=== PATIENT | female | born 1980 | race Caucasian/White ===

== ENCOUNTER 2019-10-28 06:48 | Emergency (ER) | payer SELFPAY ==
[~2019-10-28] VITALS: Ht 162.6 cm; Wt 61.0 kg
[2019-10-28] MEDS ORDERED: FAMOTIDINE 20 MG/2 ML VIAL IVP ONE (07:15)
[2019-10-28] MEDS ORDERED: IV NORMAL SALINE 1000ML BAG 1,000 ML IV ONE (07:15)
[2019-10-28] MEDS ORDERED: ONDANSETRON PF 4 MG/2 ML VIAL. IVP ONE (07:15)
[2019-10-28 07:18] LABS: BILIRUBIN,URINE NEGATIVE (NEG); CLARITY,URINE CLEAR; COLOR,URINE YELLOW; NITRITE,URINE NEGATIVE (NEG); PH,URINE 5.5 (<5.0-8.0); PROTEIN,URINE NEGATIVE (NEG-TRACE); UROBILINOGEN,URINE 0.2 mg/dL (0.2 mg/dL)
[2019-10-28 07:27] LABS: BASO # 0.1 x10^3/uL (0.0-0.2); BASO % 1 % (0-3); EOS # 0.1 x10^3/uL (0.0-0.7); EOS % 1 % (0-3); HEMATOCRIT 35.7 % (36.0-47.0); HEMOGLOBIN 11.9 g/dL (12.0-15.5); LYMPH # 1.5 x10^3/uL (1.0-4.8); LYMPH % 20 % (24-48); MEAN CORPUSCULAR HEMOGLOBIN 29 pg (25-35); MEAN CORPUSCULAR HGB CONC 33 g/dL (31-37); MEAN CORPUSCULAR VOLUME 86 fL (79-100); MONO # 0.4 x10^3/uL (0.0-1.1); MONO % 6 % (0-9); NEUT # 5.4 x10^3/uL (1.8-7.7); NEUT % 72 % (31-73); PLATELET COUNT 269 x10^3/uL (140-400); RED BLOOD COUNT 4.17 x10^6/uL (3.50-5.40); RED CELL DISTRIBUTION WIDTH 14.1 % (11.5-14.5); WHITE BLOOD COUNT 7.4 x10^3/uL (4.0-11.0)
[2019-10-28] MEDS ORDERED: KETOROLAC 15 MG/ML VIAL. IVP ONE (07:30)
[2019-10-28 07:35] LABS: AMORPHOUS SEDIMENT,UR PRESENT /HPF; BACTERIA,URINE 0 /HPF (0-FEW); RBC,URINE 0 /HPF (0-2); SQUAMOUS EPITHELIAL CELL,UR MOD /LPF
--- NOTE | 2019-10-28 07:46 | PHYS DOC ---
Past Medical History Past Medical History: Anxiety, Seizure Past Surgical History: No Surgical History Smoking Status: Never Smoker Alcohol Use: None General Adult EDM: Chief Complaint: ABDOMINAL PAIN HPI: HPI: Tamara Baker is a 39-year-old white female with a 3-day history of fatigue, headache, nausea and fever and a 1 day history of exceptional acute abdominal pain. Patient reports sleeping excessively over the last 3 days along with intermittent episodes of nausea not provoked by food or associated with anything else. She reports one episode of night sweats. Patient denies any sick contacts. She saw her PCP for headache and was prescribed a medication, but is unsure what this medication is. She describes her headache as 8 out of 10 basilar and throbbing. Approximately 4 PM yesterday she began develop extreme acute abdominal pain, she has had 3 episodes of vomiting since yesterday. Her abdominal pain has no associated alleviating or aggravating factors. She reports diffuse abdominal tenderness. Past medical history: Patient reports being diagnosed with seizure disorder ap proximately 10 years ago, controlled on lamotrigine. Past surgical history: None Social history: Denies alcohol, tobacco, illicit drugs. Meds: Lamotrigine, Adderall, trazodone. Review of Systems: Review of Systems: Constitutional: Reports feverand chills Eyes: Denies redness or eye pain HENT: Denies nasal congestion or sore throat Respiratory: Denies cough or shortness of breath Cardiovascular: Denies chest pain or palpitations GI: Reports nausea vomiting acute abdominal pain. Denies diarrhea. : Denies dysuria or hematuria Musculoskeletal: Denies back pain or joint pain Integument: Denies rash or skin lesions Neurologic: Reports headache and neck tenderness. Complete systems were reviewed and found to be within normal limits, except as documented in this note. Heart Score: Risk Factors: Risk Factors: DM, Current or recent (<one month) smoker, HTN, HLP, family history of CAD, obesity. Risk Scores: Score 0 - 3: 2.5% MACE over next 6 weeks - Discharge Home Score 4 - 6: 20.3% MACE over next 6 weeks - Admit for Clinical Observation Score 7 - 10: 72.7% MACE over next 6 weeks - Early Invasive Strategies Current Medications: Current Medications Medications (Trade) Dose Ordered Sig/Tomas Start Time Stop Time Status Last Admin Dose Admin Famotidine (Pepcid Vial) 20 mg 1X ONCE 10/28/19 07:15 10/28/19 07:16 UNV Ketorolac Tromethamine (Toradol 15mg Vial) 15 mg 1X ONCE 10/28/19 07:30 10/28/19 07:31 UNV Ondansetron HCl (Zofran) 4 mg 1X ONCE 10/28/19 07:15 10/28/19 07:16 UNV Sodium Chloride 1,000 ml @ 1,000 mls/hr 1X ONCE 10/28/19 07:15 10/28/19 08:14 UNV Patient reports: Lamotrigine, Adderall, trazodone Physical Exam: PE: Constitutional: 39-year-old white female appears stated age. Patient is in acute distress, seen holding abdomen. Patient refuses to open eyes throughout interview. Headache reported to be increased while sitting patient up. HENT: Normocephalic, atraumatic. Cranial nerve exam limited due to patient p hotophobia. Eyes: PERRL, EOMI, conjunctiva normal, no discharge Neck: Patient unable to flex chin to chest. Rotation of the neck WNL. Patient unable to extend neck. Lungs & Thorax: Bilateral breath sounds clear to auscultation, no wheezing Heart: Regular rate and rhythm no murmurs. Normal S1 and S2. S3 and S4 absent. Abdomen: Diffuse abdominal tenderness in all 4 quadrants. Bowel sounds located all 4 quadrants. Positive heel strike test. Negative rebound tenderness. Skin: Warm, dry, no erythema, no rash Back: No tenderness, no CVA tenderness Extremities: No tenderness, ROM intact, no edema. 2+4 pulses located all 4 extremities. Neurologic: Patient poorly oriented. normal motor function, normal sensory function, no focal deficits noted Psychologic: Affect normal, judgment normal Current Patient Data: Vital Signs: Vital Signs Date Time Temp Pulse Resp B/P (MAP) Pulse Ox O2 Delivery O2 Flow Rate FiO2 10/28/19 06:48 98.6 84 20 113/74 (87) 100 Room Air 98.6 EKG: EKG: RR: 842ms DE: 148ms QRS: 92ms QT: 376ms QTc: 413ms Normal sinus rhythm. Radiology/Procedures: Radiology/Procedures: [] Course & Med Decision Making: Course & Med Decision Making Pertinent Labs and Imaging studies reviewed. (See chart for details) 39-year-old white female presenting with acute abdominal pain and headache. DD: Meningitis, pancreatitis, SBO, perforated bowel. -CBC, Chem-12 -UA -CT head noncontrast. -CT abdomen, and pelvis with contrast Dragon Disclaimer: Dragon Disclaimer: This electronic medical record was generated, in whole or in part, using a voice recognition dictation system. Departure Departure Impression: Primary Impression: Abdominal pain Qualified Codes: R10.84 - Generalized abdominal pain Additional Impressions: Headache Qualified Codes: R51 - Headache Suspected 2019 novel coronavirus infection Disposition: HOME, SELF-CARE Condition: STABLE Referrals: NO PCP (PCP) VAISHALI KEBEDE MD, SCOTT S MD Patient Instructions: Abdominal Pain (Nonspecific), Headache, FAQs, Viral Syndrome Additional Instructions: You have been tested for or diagnosed with COVID-19. It is an infection caused by a new type of coronavirus. COVID-19 will cause cold-like or mild flu symptoms in most. It can cause more severe symptoms like problems breathing in some. There is no treatment for COVID-19. The body will clear the infection over time. Self-care will help to ease discomfort. Steps to Take: Self-Care Rest as needed. Healthy habits may help you feel better. Steps include: Choose healthy foods including fruits and vegetables. Drink water throughout the day. Get plenty of sleep each night. If you smoke, try to quit. It may ease breathing. Avoid alcohol. Keep Others Healthy The virus can spread to others. Droplets are released every time you sneeze or cough. The droplets can get into the mouth, nose, or eyes of people near you and lead to infection. To lower the chances of spreading COVID-19 to others: Stay at home until your doctor has said it is safe to leave. If you tested positive this will mean staying isolated until both of the following are true: At least 7 days have passed since the start of illness. You are free of fever for at least 72 hours without the use of medicine. During this time: - Avoid public areas, events, or transportation. Do not return to work or school until your doctor has said it is safe to do so. - Call ahead if you need to go to a medical center. Let them know you may have COVID-19. It will help them guide you where to go. They may also ask you to wear a facemask when you come to the office. - If you call for emergency medical services, let them know you may have COVID- 19. While at home: - Try to avoid close contact with others. Stay about 6 feet away. - If possible, spend most of your time in a separate room from others. - Use a face mask if you will be in close contact with others such as sharing a room or vehicle. - Have someone wipe down common surfaces in the home. Use household rolfer every day on areas like doorknobs, counters, or sinks. - Cough or sneeze into a tissue. Throw the tissue away right after use. If a tissue is not available, cough or sneeze into your elbow. - Wash your hands often. Wash them after sneezing or coughing. Use soap and water and wash for at least 20 seconds. Alcohol based hand drycleaner can be used if soap and water is not available. - Do not prepare food for others. Avoid sharing personal items like forks, spoons, or toothbrushes. - Avoid close contact with pets while you are sick. There is no evidence of the virus passing to pets. This is a safety step until more is known about this virus. Isolation can be frustrating. Social interaction can help. Keep in touch with friends and family through phone and tech options. You can still interact with others in your home, just keep a safe distance of about 6 feet. Follow-up: Your doctors office will check in with you to see if there are any changes in your health. You may be asked to keep track of symptoms to share with them. They will also let you know when you are clear to be in public again. Problems to Look Out For: Contact your doctor if your recovery is not going as you expect. Get emergency care if you have problems such as: - Trouble breathing - Nonstop chest pain or pressure - Changes in awareness, confusion, or problems waking - Lips or face have bluish color - Worsening of symptoms If you think you have an emergency, call for emergency medical services right away. As taken from [facility] Scripts Famotidine (PEPCID) 20 Mg Tablet 20 MG PO BID, #14 TAB Prov: BIGG FAUST DO 10/28/19 Ondansetron (ONDANSETRON ODT) 4 Mg Tab.rapdis 1 TAB PO PRN Q6-8HRS PRN for NAUSEA, #16 TAB Prov: BIGG FAUST DO 10/28/19 Hyoscyamine Sulfate (LEVSIN-SL) 0.125 Mg Tab.subl 0.125 MG SL Q4-6HRS PRN for PAIN, #14 TAB Prov: BIGG FAUST DO 10/28/19 Lorazepam (ATIVAN) 0.5 Mg Tablet 0.5 MG PO TID PRN for ANXIETY, #6 TAB Prov: BIGG FAUST DO 10/28/19 Justicifation of Admission Dx: Justifications for Admission: Justification of Admission Dx: N/A BIGG FAUST DO Oct 28, 2019 07:46
[2019-10-28 07:56] LABS: CALCIUM 8.4 mg/dL (8.5-10.1); GFR 61.1; POTASSIUM 3.7 mmol/L (3.5-5.1)
[2019-10-28 08:01] LABS: ALBUMIN 3.4 g/dL (3.4-5.0); ALBUMIN/GLOBULIN RATIO 1.1 (1.0-1.7); MAGNESIUM 2.2 mg/dL (1.8-2.4); TOTAL BILIRUBIN 0.1 mg/dL (0.2-1.0); TOTAL PROTEIN 6.5 g/dL (6.4-8.2)
[2019-10-28 08:01] LABS: BARBITURATES NEG (NEG); BENZODIAZEPINES NEG (NEG); CANNABINOIDS NEG (NEG); COCAINE NEG (NEG); METHADONE NEG (NEG); OPIATES NEG (NEG); PHENCYCLIDINE NEG (NEG)
[2019-10-28 08:03] LABS: AMPHETAMINE/METHAMPHETAMINE POS (NEG)
[2019-10-28 08:09] LABS: CREATINE KINASE 63 U/L (26-192)
[2019-10-28] MEDS ORDERED: IOHEXOL 300 MG/ML 100ML VIAL. IV ONE (08:15)
[2019-10-28 08:20] LABS: U PREG PATIENT NEGATIVE (NEG)
[2019-10-28 08:33] LABS: PROTHROMBIN TIME PATIENT 13.1 SEC (11.7-14.0)
--- NOTE | 2019-10-28 09:05 | RAD ---
CT HEAD WO CONTRAST History:Headache Comparison: None. Technique: Noncontrast CT imaging was performed of the head. Exposure: One or more of the following individualized dose reduction techniques were utilized for this examination: 1. Automated exposure control 2. Adjustment of the mA and/or kV according to patient size 3. Use of iterative reconstruction technique. Findings: No convincing acute extra-axial or parenchymal hemorrhage is identified. Some small round foci of hyperdensity of the posterior fossa greater on the right are more likely sequela of early calcification, no mass effect or edema. There is no significant intra-axial mass effect, midline shift, or extra-axial fluid collection. The power-white differentiation of the major vascular territories is preserved. The ventricles, sulci, and cisterns are within normal limits in size and configuration. Mastoid air cells are aerated. Visualized paranasal sinuses are also overall aerated. No acute calvarial abnormality is identified. Impression: 1. No convincing acute intracranial abnormality is identified. Electronically signed by: Kenn Ho MD (10/28/2019 9:02 AM) [id number]
--- NOTE | 2019-10-28 09:12 | RAD ---
CT abdomen and pelvis with contrast History: Diffuse abdominal pain Technique: After the administration of intravenous contrast, CT imaging was performed of the abdomen and pelvis. No oral contrast was given. Multiplanar images are reviewed. Exposure: One or more of the following individualized dose reduction techniques were utilized for this examination: 1. Automated exposure control 2. Adjustment of the mA and/or kV according to patient size 3. Use of iterative reconstruction technique. Comparison: None Findings: There is no significant abnormality of the visualized lung bases. There is no significant abnormality of the liver, spleen, pancreas, adrenal glands. Both kidneys enhance without hydronephrosis. Gallbladder is present without obvious intraluminal abnormality by CT. Accurate evaluation of bowel is limited without oral contrast. There is no significant inflammatory change adjacent to the bowel. There is no evidence of bowel obstruction, free fluid, or free air. Normal caliber appendix is visualized without adjacent inflammatory change, courses posterior to the ascending colon. B difficult to exclude mild wall thickening greater inferiorly of the descending and sigmoid colon although may be due to incomplete distention and peristalsis during exam. There is retained stool greater of the right and transverse colon. There are multiple phleboliths in the pelvis bilaterally. There is tampon present. Impression: 1. There is no CT evidence of acute appendicitis. It would be difficult to exclude mild variable wall thickening of the descending and sigmoid colon as could be seen with mild colitis in the appropriate clinical setting although no adjacent inflammatory change. Electronically signed by: Kenn Ho MD (10/28/2019 9:09 AM) [id number]
[2019-10-28] MEDS ORDERED: ONDA4TAB12 PO (09:38)
[2019-10-28] MEDS ORDERED: HYOS0.1265 SL (09:38)
[2019-10-28] MEDS ORDERED: LORA0.5T96 PO (09:38)
[2019-10-28] MEDS ORDERED: FAMO-63 PO (09:38)
[2019-10-28 11:00] VITALS: BP 119/68
--- NOTE | 2019-10-28 13:28 | EKG ---
[facility] [address] [place] [address] Test Date: 2019-10-28 Test Time: 07:23:06 Pat Name: YOSEF BONILLA Department: Room: Gender: F Bee Robber: : 1980 Requested By: BIGG FAUST Order Number: [id number] Reading MD: Measurements Intervals [place] Rate: 71 P: 56 MS: 148 QRS: 29 QRSD: 92 T: 48 QT: 376 QTc: 413 Interpretive Statements SINUS RHYTHM INCOMPLETE RIGHT BUNDLE BRANCH BLOCK OTHERWISE NORMAL ECG RI6.02 No previous ECG available for comparison
--- NOTE | 2019-10-30 09:46 | NUR ---
IP: Attempted to call COVID results. left voicemail to return my call.
== END 2019-10-28 11:03 | disposition home or self-care (01) ==
LOC: ER 06:48
DX: R10.84 Generalized abdominal pain (principal); Z20.828 Contact with and (suspected) exposure to other viral communicable diseases; R50.9 Fever, unspecified; R51 Headache; R11.0 Nausea; R53.83 Other fatigue; F41.9 Anxiety disorder, unspecified
CPT/HCPCS: 36415; 70450; 74177; 80053; 80307; 81001; 81025; 82553; 83605; 83690; 83735; 84484; 85025; 85610; 85730; 87086; 93005; 96361; 96374; 96375; 99285; J1885; J2060; J2405; J3490; J7030; Q9967; U0003

== ENCOUNTER 2019-10-30 12:35 | Emergency (ER) | payer SELFPAY ==
[~2019-10-30] VITALS: Ht 165.1 cm; Wt 63.6 kg
[~2019-10-30 12:35] MED LIST: FAMO-63 PO; HYOS0.1265 SL; LORA0.5T96 PO; ONDA4TAB12 PO
[2019-10-30 13:24] LABS: BASO # 0.1 x10^3/uL (0.0-0.2); BASO % 1 % (0-3); EOS # 0.1 x10^3/uL (0.0-0.7); EOS % 1 % (0-3); HEMATOCRIT 32.9 % (36.0-47.0); HEMOGLOBIN 10.8 g/dL (12.0-15.5); LYMPH # 1.5 x10^3/uL (1.0-4.8); LYMPH % 21 % (24-48); MEAN CORPUSCULAR HEMOGLOBIN 28 pg (25-35); MEAN CORPUSCULAR HGB CONC 33 g/dL (31-37); MEAN CORPUSCULAR VOLUME 86 fL (79-100); MONO # 0.4 x10^3/uL (0.0-1.1); MONO % 6 % (0-9); NEUT # 5.2 x10^3/uL (1.8-7.7); NEUT % 71 % (31-73); PLATELET COUNT 229 x10^3/uL (140-400); RED BLOOD COUNT 3.83 x10^6/uL (3.50-5.40); RED CELL DISTRIBUTION WIDTH 13.9 % (11.5-14.5); WHITE BLOOD COUNT 7.3 x10^3/uL (4.0-11.0)
[2019-10-30] MEDS ORDERED: ONDANSETRON PF 4 MG/2 ML VIAL. IV ONE (13:30)
[2019-10-30] MEDS ORDERED: IV NORMAL SALINE 1000ML BAG 1,000 ML IV ONE (13:30)
[2019-10-30] MEDS ORDERED: fentaNYL PF VIAL 100 MCG/2 ML VIAL IV ONE (13:30)
[2019-10-30 13:39] LABS: CALCIUM 7.8 mg/dL (8.5-10.1); CREATININE 0.6 mg/dL (0.6-1.0); GFR 110.2; POTASSIUM 3.6 mmol/L (3.5-5.1)
[2019-10-30 13:43] LABS: BILIRUBIN,URINE NEGATIVE (NEG); CLARITY,URINE CLEAR; COLOR,URINE YELLOW; NITRITE,URINE NEGATIVE (NEG); PROTEIN,URINE NEGATIVE (NEG-TRACE); UROBILINOGEN,URINE 0.2 mg/dL (0.2 mg/dL)
[2019-10-30 13:45] LABS: ALBUMIN 2.8 g/dL (3.4-5.0); MAGNESIUM 1.7 mg/dL (1.8-2.4); TOTAL BILIRUBIN 0.2 mg/dL (0.2-1.0); TOTAL PROTEIN 5.7 g/dL (6.4-8.2)
[2019-10-30 13:46] LABS: AMPHETAMINE/METHAMPHETAMINE NEG (NEG); BARBITURATES NEG (NEG); BENZODIAZEPINES NEG (NEG); CANNABINOIDS NEG (NEG); COCAINE NEG (NEG); METHADONE NEG (NEG); OPIATES NEG (NEG); PHENCYCLIDINE NEG (NEG)
[2019-10-30 14:12] LABS: BACTERIA,URINE 0 /HPF (0-FEW); RBC,URINE 0 /HPF (0-2); SQUAMOUS EPITHELIAL CELL,UR OCC /LPF; WBC,URINE 0 /HPF (0-4)
[2019-10-30] MEDS ORDERED: methylPREDNISolone SOD SUCC PF 125 MG/2 ML VIAL. IV ONE (15:30)
[2019-10-30] MEDS ORDERED: diphenhydrAMINE 50 MG/ML VIAL IVP ONE (15:30)
[2019-10-30] MEDS ORDERED: KETOROLAC 15 MG/ML VIAL. IVP ONE (15:30)
[2019-10-30 16:45] VITALS: BP 115/68
[2019-10-30] MEDS ORDERED: LORA0.5T96 PO (16:45)
[2019-10-30] MEDS ORDERED: ONDA-84 PO (16:45)
--- NOTE | 2019-10-30 16:46 | PHYS DOC ---
Past Medical History Past Medical History: Anxiety, Migraines, Seizure Past Surgical History: No Surgical History Smoking Status: Never Smoker Alcohol Use: None General Adult EDM: Chief Complaint: ABDOMINAL PAIN HPI: HPI: Patient is a 39 year old female who presents to the emergency department via EMS with complaints of diffuse abdominal pain, nausea, vomiting, and headache. Patient was seen for the same symptoms on 27 October. Patient states that she has been taking the medications that were prescribed but she is out of the Ativan and Zofran that were prescribed during that visit. She denies any fever, cough, shortness of breath, weakness, dysuria, hematuria, back pain, body aches, numbness, tingling, weakness. She denies any syncope or dizziness. The patient reports that her abdomen and her head pain are a 10 out of 10 on the pain scale, she denies any alleviating or exacerbating factors. Review of Systems: Review of Systems: Constitutional: Denies fever or chills. [] Eyes: Denies change in visual acuity. [] HENT: Denies nasal congestion or sore throat. [] Respiratory: Denies cough or shortness of breath. [] Cardiovascular: Denies chest pain or edema. [] GI: See HPI : Denies dysuria. [] Musculoskeletal: Denies back pain or joint pain. [] Integument: Denies rash. [] Neurologic: Denies focal weakness or sensory changes; see HPI Psychiatric: Denies depression or anxiety. [] Heart Score: Risk Factors: Risk Factors: DM, Current or recent (<one month) smoker, HTN, HLP, family history of CAD, obesity. Risk Scores: Score 0 - 3: 2.5% MACE over next 6 weeks - Discharge Home Score 4 - 6: 20.3% MACE over next 6 weeks - Admit for Clinical Observation Score 7 - 10: 72.7% MACE over next 6 weeks - Early Invasive Strategies Current Medications: Current Medications Medications (Trade) Dose Ordered Sig/Tomas Start Time Stop Time Status Last Admin Dose Admin Diphenhydramine HCl (Benadryl) 25 mg 1X ONCE 10/30/19 15:30 10/30/19 15:31 DC 10/30/19 15:55 25 MG Fentanyl Citrate (Fentanyl 2ml Vial) 50 mcg 1X ONCE 10/30/19 13:30 10/30/19 13:31 DC 10/30/19 13:37 50 MCG Ketorolac Tromethamine (Toradol 15mg Vial) 15 mg 1X ONCE 10/30/19 15:30 10/30/19 15:31 DC 10/30/19 15:55 15 MG Methylprednisolone Sodium Succinate (SOLU-Medrol 125MG VIAL) 125 mg 1X ONCE 10/30/19 15:30 10/30/19 15:31 DC 10/30/19 15:55 125 MG Ondansetron HCl (Zofran) 4 mg 1X ONCE 10/30/19 13:30 10/30/19 13:31 DC 10/30/19 13:36 4 MG Sodium Chloride 1,000 ml @ 1,000 mls/hr 1X ONCE 10/30/19 13:30 10/30/19 14:29 DC 10/30/19 13:36 1,000 MLS/HR Allergies: Allergies: Allergies Coded Allergies Type Severity Reaction Last Updated Verified No Known Drug Allergies 10/28/19 No Physical Exam: PE: Constitutional: Well developed, well nourished, moderate distress, non-toxic appearance. [] HENT: Normocephalic, atraumatic, bilateral external ears normal, oropharynx dry, Nose normal. [] Eyes: PERRLA, EOMI, conjunctiva normal, no discharge. [] Neck: Normal range of motion, no stridor. [] Cardiovascular:Heart rate regular rhythm, no murmur [] Lungs & Thorax: Bilateral breath sounds clear to auscultation [] Abdomen: Bowel sounds normal, soft, diffuse tenderness to palpation with no rebound tenderness or guarding, no masses, no pulsatile masses. [] Skin: Warm, dry, no erythema, no rash. [] Back: No CVA tenderness. [] Extremities: No cyanosis, ROM intact, no edema. [] Neurologic: Alert and oriented X 3, normal motor function, normal sensory function, no focal deficits noted. [] Psychologic: Affect normal, judgement normal, mood normal. [] Current Patient Data: Labs: Laboratory Tests Test 10/30/19 13:15 10/30/19 13:27 10/30/19 13:36 White Blood Count 7.3 x10^3/uL (4.0-11.0) Red Blood Count 3.83 x10^6/uL (3.50-5.40) Hemoglobin 10.8 g/dL (12.0-15.5) L Hematocrit 32.9 % (36.0-47.0) L Mean Corpuscular Volume 86 fL (79-100) Mean Corpuscular Hemoglobin 28 pg (25-35) Mean Corpuscular Hemoglobin Concent 33 g/dL (31-37) Red Cell Distribution Width 13.9 % (11.5-14.5) Platelet Count 229 x10^3/uL (140-400) Neutrophils (%) (Auto) 71 % (31-73) Lymphocytes (%) (Auto) 21 % (24-48) L Monocytes (%) (Auto) 6 % (0-9) Eosinophils (%) (Auto) 1 % (0-3) Basophils (%) (Auto) 1 % (0-3) Neutrophils # (Auto) 5.2 x10^3/uL (1.8-7.7) Lymphocytes # (Auto) 1.5 x10^3/uL (1.0-4.8) Monocytes # (Auto) 0.4 x10^3/uL (0.0-1.1) Eosinophils # (Auto) 0.1 x10^3/uL (0.0-0.7) Basophils # (Auto) 0.1 x10^3/uL (0.0-0.2) Sodium Level 141 mmol/L (136-145) Potassium Level 3.6 mmol/L (3.5-5.1) Chloride Level 109 mmol/L (98-107) H Carbon Dioxide Level 28 mmol/L (21-32) Anion Gap 4 (6-14) L Blood Urea Nitrogen 6 mg/dL (7-20) L Creatinine 0.6 mg/dL (0.6-1.0) Estimated GFR (Cockcroft-Gault) 110.2 BUN/Creatinine Ratio 10 (6-20) Glucose Level 96 mg/dL (70-99) Calcium Level 7.8 mg/dL (8.5-10.1) L Magnesium Level 1.7 mg/dL (1.8-2.4) L Total Bilirubin 0.2 mg/dL (0.2-1.0) Aspartate Amino Transferase (AST) 11 U/L (15-37) L Alanine Aminotransferase (ALT) 14 U/L (14-59) Alkaline Phosphatase 63 U/L (46-116) Total Protein 5.7 g/dL (6.4-8.2) L Albumin 2.8 g/dL (3.4-5.0) L Albumin/Globulin Ratio 1.0 (1.0-1.7) Lipase 57 U/L (73-393) L Urine Collection Type Void Urine Color Yellow Urine Clarity Clear Urine pH 8.0 (<5.0-8.0) Urine Specific Waucoma 1.010 (1.000-1.030) Urine Protein Negative mg/dL (NEG-TRACE) Urine Glucose (UA) Negative mg/dL (NEG) Urine Ketones (Stick) Negative mg/dL (NEG) Urine Blood Negative (NEG) Urine Nitrite Negative (NEG) Urine Bilirubin Negative (NEG) Urine Urobilinogen Dipstick 0.2 mg/dL (0.2 mg/dL) Urine Leukocyte Esterase Negative (NEG) Urine RBC 0 /HPF (0-2) Urine WBC 0 /HPF (0-4) Urine Squamous Epithelial Cells Occ /LPF Urine Bacteria 0 /HPF (0-FEW) Urine Mucus Slight /LPF Urine Opiates Screen Neg (NEG) Urine Methadone Screen Neg (NEG) Urine Barbiturates Neg (NEG) Urine Phencyclidine Screen Neg (NEG) Urine Amphetamine/Methamphetamine Neg (NEG) Urine Benzodiazepines Screen Neg (NEG) Urine Cocaine Screen Neg (NEG) Urine Cannabinoids Screen Neg (NEG) Urine Ethyl Alcohol Neg (NEG) POC Urine HCG, Qualitative Hcg negative (Negative) Laboratory Tests 10/30/19 13:15 Laboratory Tests 10/30/19 13:15 Vital Signs: Vital Signs Date Time Temp Pulse Resp B/P (MAP) Pulse Ox O2 Delivery O2 Flow Rate FiO2 10/30/19 15:37 70 20 116/67 (83) 99 Room Air 10/30/19 12:35 97.9 97.9 EKG: EKG: [] Radiology/Procedures: Radiology/Procedures: [] Course & Med Decision Making: Course & Med Decision Making Pertinent Labs and Imaging studies reviewed. (See chart for details) Patient is a 39-year-old female who presents emergency department complaints of nausea, vomiting, abdominal pain, and a headache. She was seen at this facility 3 days prior to today for the same symptoms. During her visit on October 272019 she had a negative head CT and a negative abdominal CT. The patient reported that the symptoms had returned she denied any increase in the symptoms. I gave the patient 1 L normal saline, 4 mg of Zofran, and 50 mcg of fentanyl. She reported resolution of her abdominal pain and nausea vomiting after these medications. However, her headache continued. I gave the patient 15 mg of IV Toradol, 25 mg of IV Benadryl, and 125 mg of Solu-Medrol. The patient stated that her headache became much less severe and was tolerable after these medications. CBC revealed a hemoglobin of 10.8 hematocrit of 32.9 otherwise unremarkable; patient's CMP revealed a chloride of 109, calcium of 7.8, magnesium of 1.7, normal liver enzymes and lipase; her urine drug screen was negative; UA was unre markable. Patient's vital signs are stable in the emergency department and her symptoms improved after medications, therefore no imaging was done as she had had normal exams 3 days prior to arrival. Patient reported being out of the Zofran and Ativan that were prescribed during the previous visit I wrote prescriptions for additional 6 tablets of Ativan and 10 tablets of Zofran. Encouraged patient to follow clear liquid diet for 24 hours then advance her diet as tolerated starting with bland foods. Encouraged patient to follow-up with her primary care doctor in the next 1 to 2 days and instructed her to return to the ER if symptoms worsen. Patient verbalized an understanding of home care, medications, follow-up, and return to ED instructions and was in agreement with the plan of care. [] Dragon Disclaimer: Dragon Disclaimer: This electronic medical record was generated, in whole or in part, using a voice recognition dictation system. Departure Departure Impression: Primary Impression: Headache Qualified Codes: R51 - Headache Additional Impressions: Abdominal pain Qualified Codes: R10.84 - Generalized abdominal pain Vomiting Qualified Codes: R11.2 - Nausea with vomiting, unspecified Disposition: 01 HOME, SELF-CARE Condition: IMPROVED Referrals: UNKNOWN PCP NAME (PCP) Patient Instructions: Abdominal Pain (Nonspecific), General Headache Without Cause, Nausea and Vomiting, [id number] Additional Instructions: Fill prescriptions and use them as directed. Continue taking the Famotidine and the Levsin that were prescribed 2 days ago. Recommend clear fluids for the next 24 hours. Then you may advance to bland foods such as bananas, rice, applesauce, and dry toast. Follow-up with your primary care doctor in the next 1-2 days. Return to the emergency room if your symptoms worsen. Scripts Lorazepam (ATIVAN) 0.5 Mg Tablet 0.5 MG PO TID PRN for ANXIETY / AGITATION for 2 Days, #6 TAB 0 Refills Prov: LENA CACERES APRN 10/30/19 Ondansetron Hcl (ONDANSETRON HCL) 4 Mg Tablet 1 TAB PO PRN Q6HRS PRN for NAUSEA/VOMITING for 3 Days, #10 TAB 0 Refills Prov: LENA CACERES APRN 10/30/19 Justicifation of Admission Dx: Justifications for Admission: Justification of Admission Dx: N/A LENA CACERES APRN Oct 30, 2019 16:46
== END 2019-10-30 17:06 | disposition home or self-care (01) ==
LOC: ER 12:35
DX: G43.909 Migraine, unspecified, not intractable, without status migrainosus (principal); R10.84 Generalized abdominal pain; R11.2 Nausea with vomiting, unspecified
CPT/HCPCS: 36415; 80053; 80307; 81001; 81025; 83690; 83735; 85025; 96361; 96374; 96375; 99285; J1200; J1885; J2405; J2930; J3010; J7030